=== PATIENT | female | born 1940 | race Caucasian/White ===

== ENCOUNTER 2018-09-14 06:31 | Inpatient (IN) | payer MEDICARE, MEDICAID ==
[~2018-09-14] VITALS: Ht 157.5 cm; Wt 90.7 kg
[2018-09-14] MEDS ORDERED: aspirin 325mg tablet PO ONE (07:45)
[2018-09-14 08:27] LABS: BASOPHILS % (AUTO) 0.5 % (0-1); EOSINOPHILS # (AUTO) 0.1 X10'3 (0-0.9); EOSINOPHILS % (AUTO) 1.5 % (0-6); HEMATOCRIT 39.7 % (35.0-45.0); HEMOGLOBIN 13.3 g/dl (12.0-16.0); LYMPHOCYTES # (AUTO) 1.3 X10'3 (1.1-4.8); LYMPHOCYTES % (AUTO) 17.9 % (21-51); MEAN CORPUSCULAR HEMOGLOBIN 31.5 PG (27.0-31.0); MEAN CORPUSCULAR HGB CONC 33.6 g/dL (33.0-36.5); MEAN CORPUSCULAR VOLUME 93.9 FL (78-98); MEAN PLATELET VOLUME 8.1 FL (7.4-10.4); MONOCYTES # (AUTO) 0.7 X10'3 (0-0.9); MONOCYTES % (AUTO) 9.5 % (2-12); NEUTROPHILS # (AUTO) 5.2 X10'3 (1.8-7.7); NEUTROPHILS % (AUTO) 70.6 % (42-75); PLATELET COUNT 199 X10'3 (140-440); RED BLOOD COUNT 4.22 X10'6 (4.20-5.60); RED CELL DISTRIBUTION WIDTH 14.2 % (11.5-14.5); WHITE BLOOD COUNT 7.3 X10'3 (4.5-11.0)
[2018-09-14 08:28] LABS: ALANINE AMINOTRANSFERASE 25 U/L (12-78); ALBUMIN 3.7 G/DL (3.4-5.0); ALKALINE PHOSPHATASE 53 IU/L (46-116); ANION GAP 13 (8-16); ASPARTATE AMINO TRANSFERASE 15 U/L (10-37); BILIRUBIN,TOTAL 0.3 MG/DL (0.1-1.0); BLOOD UREA NITROGEN 23 MG/DL (7-18); BUN/CREATININE RATIO 25.8 (6.6-38.0); CHLORIDE 103 MMOL/L (99-107); CREATININE 0.89 MG/DL (0.40-0.90); GLUCOSE 135 MG/DL (70-104); MAGNESIUM 1.7 MG/DL (1.5-2.4); POTASSIUM 3.8 MMOL/L (3.5-5.1); SODIUM 142 MMOL/L (135-145); TOTAL CARBON DIOXIDE 25.6 MMOL/L (24-32); TOTAL PROTEIN 7.5 G/DL (6.4-8.2); eGFR 62 ML/MIN
[2018-09-14 08:30] LABS: INR 1.2 INR
--- NOTE | 2018-09-14 08:55 | NUR ---
Pt states she can't have MRI due to pacemaker placement 8 years ago by [facility].
[2018-09-14] MEDS ORDERED: ASPI81TA52 PO (10:05)
[2018-09-14] MEDS ORDERED: METF-438 PO (10:05)
[2018-09-14] MEDS ORDERED: SOTA160T PO (10:05)
[2018-09-14] MEDS ORDERED: EZET10TA14 PO (10:05)
[2018-09-14] MEDS ORDERED: ROSU40TA PO (10:05)
[2018-09-14] MEDS ORDERED: OXYB5TAB11 PO (10:05)
[2018-09-14] MEDS ORDERED: OMEP20TA5 PO (10:05)
[2018-09-14] MEDS ORDERED: HYDR25TA4 PO (10:05)
[2018-09-14] MEDS ORDERED: DABI150C PO (10:05)
[2018-09-14] MEDS ORDERED: MULT-1141 PO (10:05)
--- NOTE | 2018-09-14 10:06 | NUR ---
pt ambulated to bathroom with a steady gait for urine sample. Awaiting inpatient room.
[2018-09-14 10:53] LABS: CLARITY,URINE SLIGHTLY CLOUDY (Clear); COLOR,URINE YELLOW (Yellow); GLUCOSE, URINE NEGATIVE (Neg); KETONES,URINE NEGATIVE (Neg); LEUKOCYTE ESTERASE ,URINE SMALL (Neg); NITRITES, URINE POSITIVE (Neg); OCCULT BLOOD,URINE LARGE (Neg); PH,URINE 5.5 (4.8-8.0); PROTEIN,URINE NEGATIVE (Neg); UROBILINOGEN,URINE 0.2 E.U/dL (0.2-1.0)
--- NOTE | 2018-09-14 11:12 | NUR ---
[facility] NURSE AT BEDSIDE AT THIS TIME.
[2018-09-14 11:13] LABS: UA COLLECTION TYPE CLN CATCH MIDSTREAM
[2018-09-14 11:16] LABS: MUCUS STRANDS FEW /LPF (Neg); SQUAMOUS EPITHELIAL CELL,UR FEW /LPF (FEW)
[2018-09-14 11:17] LABS: BACTERIA,URINE 4+ /HPF (Neg)
[2018-09-14 11:18] LABS: RBC,URINE 20-50 /HPF (0-2)
[2018-09-14 11:30] VITALS: BP 141/51
[2018-09-14 12:39] LABS: HEMOGLOBIN A1C 6.6 % (4.5-6.2)
[2018-09-14] MEDS: ezetimibe 10mg tablet PO SCH (14:25)
[2018-09-14 15:00] VITALS: BP 117/49
--- NOTE | 2018-09-14 17:33 | NUR ---
PAGER ID: [phone] MESSAGE: [phone] Sivakumar Ortizco do you want her to have the Diabetic protocol orders? ROBERT Keith Ext [phone]
[2018-09-14] MEDS ORDERED: insulin Lispro (HumaLOG) vial - multi-dose SQ SCH (17:35)
[2018-09-14] MEDS ORDERED: glucagon, human recombinant 1mg kit SUBCUT PRN (17:35)
[2018-09-14] MEDS ORDERED: dextrose ORAL solution 15 GM/59 ML bottle PO PRN ×2 (17:35)
[2018-09-14] MEDS ORDERED: MESSAGE TO PHARMACY PO ONE (17:35)
[2018-09-14] MEDS ORDERED: dextrose 50%-water 50ml dispensing syringe IV PRN ×2 (17:35)
[2018-09-14 18:00] VITALS: BP 139/55
--- NOTE | 2018-09-14 18:04 | NUR ---
Problems reprioritized. Patient report given, questions answered & plan of care reviewed with ROBERT Maciel.
--- NOTE | 2018-09-14 18:36 | NUR ---
Patient in room PCU 3025. I have received report from Sagar and had the opportunity to ask questions and assume patient care.
[2018-09-14] MEDS ORDERED: SOTALOL HCL PO SCH (20:00)
[2018-09-14] MEDS: oxybutynin 5mg tablet PO SCH (20:23)
[2018-09-14] MEDS: dabigatran 150mg capsule PO SCH (20:23)
[2018-09-14] MEDS: sotalol 80mg tablet PO SCH (20:54)
[2018-09-14] MEDS ORDERED: insulin glargine (Lantus) pen - multi-dose SQ SCH (21:00)
[2018-09-14 22:00] VITALS: BP 94/41
[2018-09-15 02:00] VITALS: BP 110/56
[2018-09-15 06:00] VITALS: BP_SYST 118; BP_SYST 167; BP_DIAS 52; BP_DIAS 75
--- NOTE | 2018-09-15 06:04 | NUR ---
Problems reprioritized. Patient report given, questions answered & plan of care reviewed with Sagar.
--- NOTE | 2018-09-15 06:09 | NUR ---
Patient in room PCU 3025. I have received report from ROBERT Maciel and had the opportunity to ask questions and assume patient care.
[2018-09-15] MEDS: dabigatran 150mg capsule PO SCH (07:28)
[2018-09-15] MEDS: sotalol 80mg tablet PO SCH (07:28)
[2018-09-15] MEDS: ezetimibe 10mg tablet PO SCH (07:28)
[2018-09-15] MEDS: oxybutynin 5mg tablet PO SCH (07:28)
[2018-09-15] MEDS ORDERED: pantoprazole 40mg Tablet.DR PO SCH (07:30)
[2018-09-15] MEDS ORDERED: non-formulary drug (Omeprazole 1 TAB) PO SCH (08:00)
[2018-09-15] MEDS ORDERED: non-formulary drug (Rosuvastatin Calcium* (Crestor*) 1 TAB) PO SCH (08:00)
[2018-09-15] MEDS ORDERED: atorvastatin 20mg tablet PO SCH (08:00)
[2018-09-15] MEDS ORDERED: aspirin 81mg tablet.DR PO SCH (08:00)
--- NOTE | 2018-09-15 13:39 | NUR ---
Discharged. Given DM survival skills and CM.DM completed. Educated on eye condition and follow-up. IV and tele DC'd. Stable per MD for DC.
== END 2018-09-15 09:48 | disposition home or self-care (01) | DRG 69 ==
LOC: ER 06:32 → PCU 3S 11:24 → CMPBEDREQ 19:36
PROVIDERS: ADMIT Internal Medicine; ATTEND Internal Medicine
DX: G45.9 Transient cerebral ischemic attack, unspecified (principal); G45.3 Amaurosis fugax; E11.9 Type 2 diabetes mellitus without complications; E78.5 Hyperlipidemia, unspecified; I10 Essential (primary) hypertension; Z96.612 Presence of left artificial shoulder joint; Z96.653 Presence of artificial knee joint, bilateral; M19.90 Unspecified osteoarthritis, unspecified site; I25.10 Atherosclerotic heart disease of native coronary artery without angina pectoris; I48.91 Unspecified atrial fibrillation; Z79.82 Long term (current) use of aspirin; Z79.84 Long term (current) use of oral hypoglycemic drugs; Z79.899 Other long term (current) drug therapy; Z95.0 Presence of cardiac pacemaker; Z88.1 Allergy status to other antibiotic agents; Z88.0 Allergy status to penicillin
CPT/HCPCS: 36415; 70450; 71045; 80053; 81001; 82948; 83036; 83735; 84100; 84484; 85025; 85610; 85651; 87070; 87077; 87088; 87186; 93005; 93306; 93880; 99285; G0378; J1815